=== PATIENT | male | born 1950 | race African-American/Black ===

== ENCOUNTER 2020-04-15 12:01 | Inpatient (IN) | payer BC ==
[~2020-04-15] VITALS: Ht 182.9 cm; Wt 111.7 kg
[2020-04-15] VITALS (29 sets, daily range): BP systolic 112–199; BP diastolic 71–127
--- NOTE | ~2020-04-15 | HC ---
[facility] [address] [place] [address] CONSULTATION Name: AQUILES COBB Room #: 247-P [facility] IN M.R.#: [id number] Admission: 04/15/20 Attend Phys: Sonia Buchanan Discharge: Date of : 50 Report #: [id number] THIS REPORT FOR: cc: Billy Garcia MD [facility] - Family physician unknown Brian Dwyer MD ~ DATE OF SERVICE: 04/15/2020 HISTORY OF PRESENT ILLNESS: This is a 69-year-old male patient who was evaluated by me in the Emergency Room and I had numerous conversations with multiple health administrator health care facility including Emergency Room doctor, sustainability coordinator, radiologist, MRI personnel, patient's and family. The patient is difficult to evaluate because the patient is intubated and is on propofol. tells me that the patient is hypertensive for a long time. She does not know for sure whether he takes his medication on a regular basis. She says that he does not discuss things with her. She did not know the name of the family doctor. The patient is right handed. Around 11-11:30 or somewhere in between that time, the patient became restless. He started pacing, he tried to drive, but came back within 5 minutes and he became unresponsive. Talking to Emergency Room physician, it would appear the patient had a grand mal seizure after that and he was noticed to be weak on the left side. Emergency Room physician had sent the patient for CT and CT angiogram. I went and reviewed it and reviewed it with radiologist. His CT scan looks okay. CT angiogram unfortunately is suboptimal because the patient's injection is subcutaneous and there is very little dye in the patient's vessels. I could not examine the patient. Emergency Room physician told me that he was weak on the left side and he had gaze preference towards the left, it does not make any anatomical sense. My opinion was that although in the original study, seizure at the onset was a contraindication, but now the feeling is if the physician's subjective feeling is that this patient's seizure did not explain the patient's deficit, we should proceed with TPA. This was a very difficult case to decide, but my feeling was that we should proceed with TPA and after talking to the and after getting her consent, we started the TPA. Then his lab came back. His PT, PTT was okay and his potassium was 7.2 and they said the specimen was not hemolyzed. That was a very high potassium. That made it even more difficult to determine whether his deficit is because of stroke or whether it can be because of other things going on with him. I tried to inquire what his blood sugar was when these symptoms started. It looks like when ambulance people came, it was 179. So, it does look like he was hypoglycemic. His magnesium was not done and I asked them to get it done. He already received the bolus for TPA, but my feeling was, now since his potassium is also so high, his magnesium is not available, his CT angio and perfusion is suboptimal and we still have time left because it started between 11 to 11:30, we should go ahead [facility] [address] [place] [address] CONSULTATION Name: JORDYNAQUILES Rajeev Room #: 247-P ADM IN M.R.#: [id number] Admission: 04/15/20 Attend Phys: Sonia Buchanan Discharge: Date of : 50 Report #: [id number] and get an MRI before we finish the TPA. Unfortunately, the MRI got delayed. MRI got delayed because he had a chest x-ray which was significantly abnormal and they do not know whether it is COVID or just a pulmonary infiltrate. MRI also told me that they need to get approval from senior vice president and chief information officer before an MRI is done. They also have to take care of his high potassium before they feel comfortable sending him down for MRI because it was a very high potassium. Ultimately, all of it was achieved and the patient was sent to MRI and that is where he is. I had numerous discussions with the since then. I have discussed all the options with her. My plan is that if the MRI demonstrate any embolus, then we need to transfer this patient to some other facility. If MRI is normal, then I think we should just watch him conservatively. I have overridden the contraindication of seizure in this patient, but feel uncomfortable overriding other contraindications including very high potassium of 7.2 and if the MRI does not show any abnormality and MRA does not show any abnormality, then it becomes difficult to make a strong case for TPA, although this can still very well be a stroke. If stroke occurred, it will be unusual that the patient started pacing and then suddenly passed out. That is not a typical history. Focal deficit can occur after strokes in the presence of metabolic disturbances, but I will discuss all the options with the family. My plan was to finish the TPA if we can justify stroke on MRI and not give any further TPA if we do not. If we do not give him TPA, we have to give him fluid boluses to get his blood pressure up to some extent. An addendum will be dictated to this patient after I look at the MRI and talk to the again. By: 1456 44 Brian Dwyer MD /nt
[~2020-04-15 12:01] MED LIST: CIPROFLOXACIN500 M1 PO; CLONIDINE HCL0.2 M2 GT; FLOMAX PO; IBUPROFEN 800800 MG PO; JANUVIA50 MG; LANTUS100 UNIT/M SUBQ; LISINOPRIL5 MG PO
--- NOTE | 2020-04-15 12:50 | NUR ---
INTUBATED AT THIS TIME BY ERP 20MG ETOMIDATE 200MG SUCC.
[2020-04-15 12:52] LABS: ABSOLUTE NEUTROPHILS 6.4 thou/uL (1.4-8.2); BASOPHILS 1.2 % (0.0-2.0); EOSINOPHILS 1.8 % (0.0-3.0); HEMATOCRIT 49.5 % (42.0-52.0); HEMOGLOBIN 15.8 gm/dL (14.0-18.0); LYMPHOCYTES 23.4 % (24.0-44.0); MCHC 31.9 g/dL (28.0-37.0); MCV 84.9 fL (80.0-100.0); MONOCYTES 9.8 % (1.0-8.0); PLATELET COUNT 351 thou/uL (150-400); POLYS 63.8 % (36.0-66.0); RBC 5.83 mil/uL (4.50-6.00)
[2020-04-15 13:09] LABS: APTT 25.3 Seconds (24.5-32.8); PROTIME 10.2 Seconds (9.3-11.4)
[2020-04-15 13:16] LABS: ALBUMIN 3.5 g/dL (3.4-5.0); ANION GAP 8 mmol/L (7-16); BUN 14 mg/dL (7-18); CALCIUM 8.8 mg/dL (8.5-10.1); CHLORIDE 106 mmol/L (98-107); CO2 23 mmol/L (21-32); CREATININE 1.9 mg/dL (0.7-1.3); GLUCOSE 257 mg/dL (74-106); SGOT 17 U/L (15-37); SGPT 15 U/L (16-63); SODIUM 137 mmol/L (136-145); TOTAL BILIRUBIN 0.9 mg/dL (0.2-1.0); TOTAL PROTEIN 8.5 g/dL (6.4-8.2); TROPONIN-I <0.06 ng/mL (<0.06)
[2020-04-15 13:21] LABS: POTASSIUM 7.2 mmol/L (3.5-5.1)
--- NOTE | 2020-04-15 13:26 | EKG ---
[address] [address] [place] [address] ELECTROCARDIOGRAM REPORT Name: AQUILES COBB Room #: REG RADHA Steven#: [id number] Admission: 04/15/20 Attend Phys: Discharge: Date of : 50 Report #: [id number] [facility] ED Test Date: 2020-04-15 Test Time: 12:33:40 Pat Name: AQUILES COBB Department: Room: Gender: M Personal Vehicle Advisor: : 1950 Requested By: Jose Barber Order Number: [id number] MD: Joseph Aguero Measurements Intervals Moran Rate: 149 P: 0 IA: 60 QRS: -52 QRSD: 136 T: 99 QT: 329 QTc: 518 Interpretive Statements Wide-QRS tachycardia, suspect Atrial Flutter with 2:1 block Ventricular premature complex Nonspecific IVCD with LAD No previous ECG available for comparison Electronically Signed On 04-15-2020 13:25:54 LEAD MILITARY ANALYST by Joseph Aguero [email or web address] <ELECTRONICALLY SIGNED> By: Joseph Aguero MD, [facility] 04/15/20 1325 1233 1233 Joseph Aguero MD, FACC /EPI
[2020-04-15 16:38] LABS: BE(vivo) -6.2 mmol/L (-2 to +3); HCO3 19.5 mmol/L (22.0-26.0); PCO2 39.5 mmHg (35.0-45.0); sO2 95.8 % (92.0-98.0)
[2020-04-15 16:39] LABS: pH 7.311 (7.360-7.450)
[2020-04-15 17:23] LABS: CREATININE 1.8 mg/dL (0.7-1.3)
[2020-04-15 17:26] LABS: POTASSIUM 5.2 mmol/L (3.5-5.1)
--- NOTE | 2020-04-15 18:56 | NUR ---
FAMILY UPDATED AT THIS TIME ON POC AND TRANSFER TO ICU
--- NOTE | 2020-04-15 19:57 | NUR ---
Pt transported from ED to ICU room 247 on [place] intubated with propofol/NS running. Pt BP in the 140s Sys with Cardene no longer running. Pt is PUI and is isolated. ALL staff doning appropriate PPE for admission of pt. Pt's possession in two bags and a hat in room. Continue with plan of care.
[2020-04-16] VITALS (42 sets, daily range): BP systolic 112–177; BP diastolic 73–111
[2020-04-16 04:59] LABS: PROT/CREAT RATIO 4.8; URINE CREATININE-RANDOM* 67.6 mg/dL; URINE PROTEIN-RANDOM* 325.3 mg/dL (<11.9)
[2020-04-16 09:26] LABS: BE(vivo) -3.8 mmol/L (-2 to +3); PCO2 42.6 mmHg (35.0-45.0); PO2 92.2 mmHg (80.0-100.0); pH 7.331 (7.360-7.450); sO2 96.6 % (92.0-98.0)
--- NOTE | 2020-04-16 12:13 | NUR ---
ASSUMED CARE AT 0700. PATIENT TAKEN OFF SEDATION AROUND 1000. PATIENT WAS ON CPAP TRIAL FROM [id number]. PATIENT EXTUBATED BY RT AT [address] CELAYA. PATIENT NOW ON NC @ 5L AND TOLERATING IT WELL. RESTRATINTS WERE TAKEN OFF AFTER EXTUBATION AT 1150.
== END 2020-04-16 14:40 | disposition left against medical advice (07) | DRG 100 ==
LOC: ER 12:01 → EROBS 16:40 → ICU 16:40
PROVIDERS: Emergency Medicine; Internal Medicine Nephrology; ADMIT Hospitalist; ATTEND Hospitalist
PROC: 0BH17EZ Insertion of Endotracheal Airway into Trachea, Via Natural or Artificial Opening (ICD-10-PCS; principal; 2020-04-15)
PROC: 5A1935Z Respiratory Ventilation, Less than 24 Consecutive Hours (ICD-10-PCS; principal; 2020-04-15)
DX: G40.909 Epilepsy, unspecified, not intractable, without status epilepticus (principal); J96.00 Acute respiratory failure, unspecified whether with hypoxia or hypercapnia; I16.1 Hypertensive emergency; N17.9 Acute kidney failure, unspecified; E87.2 Acidosis; E87.5 Hyperkalemia; R91.8 Other nonspecific abnormal finding of lung field; E11.22 Type 2 diabetes mellitus with diabetic chronic kidney disease; I12.9 Hypertensive chronic kidney disease with stage 1 through stage 4 chronic kidney disease, or unspecified chronic kidney disease; R80.9 Proteinuria, unspecified; Z53.29 Procedure and treatment not carried out because of patient's decision for other reasons; Z86.73 Personal history of transient ischemic attack (TIA), and cerebral infarction without residual deficits; Z20.828 Contact with and (suspected) exposure to other viral communicable diseases
CPT/HCPCS: 10078

== ENCOUNTER 2020-04-16 20:12 | Inpatient (IN) | payer BC, OTHER ==
[~2020-04-16] VITALS: Ht 182.9 cm; Wt 120.3 kg
[2020-04-16 20:13] VITALS: BP 179/104
[2020-04-16 21:45] LABS: ABSOLUTE NEUTROPHILS 10.8 thou/uL (1.4-8.2); BASOPHILS 0.7 % (0.0-2.0); EOSINOPHILS 0.4 % (0.0-3.0); HEMATOCRIT 44.9 % (42.0-52.0); HEMOGLOBIN 14.2 gm/dL (14.0-18.0); LYMPHOCYTES 8.7 % (24.0-44.0); MCH 26.8 pg (26.0-34.0); MCHC 31.7 g/dL (28.0-37.0); MCV 84.5 fL (80.0-100.0); MONOCYTES 8.3 % (1.0-8.0); POLYS 81.9 % (36.0-66.0); RBC 5.31 mil/uL (4.50-6.00); RDW 14.6 % (10.5-14.5); WBC 13.2 thou/uL (4.0-11.0)
[2020-04-16 21:49] LABS: PLATELET COUNT 249 thou/uL (150-400)
[2020-04-16 21:53] LABS: CALCIUM 8.7 mg/dL (8.5-10.1); POTASSIUM 3.8 mmol/L (3.5-5.1)
[2020-04-16 21:59] LABS: ALBUMIN 3.2 g/dL (3.4-5.0); TOTAL BILIRUBIN 0.9 mg/dL (0.2-1.0)
[2020-04-16 23:10] VITALS: BP 179/104
[2020-04-16 23:24] VITALS: BP 162/105
[2020-04-17] VITALS (32 sets, daily range): BP systolic 92–221; BP diastolic 43–136
--- NOTE | 2020-04-17 02:44 | NUR ---
PT ADMITTED FOR MONITORING AFTER LEAVING THE HOSPITAL 04/16/2020 AMA .PT IS A/O X3 AND ALSO CONFUSE AND FORGETFUL.PT IS UP WITH X1 ASSIST TO RESTROOM.PT USES URINAL.PT IS ACCUCHECK ACHS .PT IS ON 2L OF O2 .PT AND HIGH BLOOD PRESSURE AND WAS ADMINISTERED HYDRALAZINE PRN .PT HAD A TEMPERATURE OF 100.OF AND WAS GIVEN TYLENOL.PT REMAINED IN BED TILL THIS POINT.WILL CONTINUE TO MONITOR
--- NOTE | 2020-04-17 08:15 | NUR ---
cm completed the initial assessment to discuss bio-pyschosocial hx and d/c planning on 04/16/20. cm spk w/pt's , alia, as pt was in ICU and confused. pt was "not acting right" yeterday moring, as evidenced by, "pacing the floor...not speaking...left the garage door open...not answering his phone." when the pt finally answered his phone, pt told alia he was in the driveway. after pt sat in the car for sometime, she went outside. alia stated she could "tell by his eyes something wasnt right." pt is usu A&O, active and independent w/cares. pt is employed and has 0 DMES and denies hx w/SNF or HH. According to RN notes, pt left hospital AMA on 04/15/20. Pt was brought back to [facility] accompanined by his dtr last night. cm to cont to follow.
--- NOTE | 2020-04-17 12:05 | NUR ---
PT ADMITTED YESTEDAY RELATED TO ASPIRATION PNA, KARL. CHART AND SPOUSE INDICATED THAT PT HAD LEFT AMA FROM [facility] [place] YESTERDAY AFTER HE WAS EXTUBATED. PT'S SPOUSE INDICATED THAT THEY HAD ALL ENGOURAGED HIM TO COME BACK BUT HE HAD REFUSED UNTIL HIS DTR CAME OVER YESTERDAY EVENING. CM CALLED AND SPOKE WITH PT OVER THE PHONE THIS DAY. HE INDICATED HE RESIDES IN A HOUSE WITH HIS . NO STEPS TO ENTER 10 STEPS HE USES INSIDE. 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 NO DME, HH HX , OR SNF. CM CALLED AND SPOKE WITH PT'S WELL. SHE CONFIRMED THE ABOVE. PHYSICIAN INDICATED THAT REPEAT COVID TEST IS PENDING AND THAT NEUROLOGY HAS BEEN CONSULTED AND PT HAD SEIZURE. SPOUSE INDICATED THAT THEY ANTICPATE PT RETURNING HOME ONCE MEDICALLY STABLE. CM TO FOLLOW INDICATED WITH DC PLANNING.
--- NOTE | 2020-04-17 14:54 | NUR ---
CM NOTIFIED THAT CARE TEAM IS WANTING PT TRANSFERED TO CCU RELATED TO BP ISSUES. PT IS TO TRANSFER TO [facility] 206 FOR CLOSER MEDICAL MONITORING. CM NOTIFIED PT'S SPOUSE. CM TO FOLLOW INDICATED WITH DC PLANNING.
--- NOTE | 2020-04-17 15:00 | NUR ---
PT A&OX2-3, FORGETFUL, DENIES PAIN. HYDRALAZINE GIVEN FOR HYPERTENSION. PATIENT RESTED MOSTLY TODAY IN BED. PATIENT HAD NO APPETITE, DID DRINK WATER. PATIENT STEADY ON FEET AND WORKED WITH PHYSICAL THERAPY. PATIENT TRANSFERED TO CCU, REPORT GIVEN TO HARINDER.
--- NOTE | 2020-04-17 16:05 | NUR ---
PT ARRIVED ON UNIT AROUND 1520, PT AOX3 WITH SOME CONFUSION/FORGETFULNESS. PT IS HYPERTENSIVE, REPORT RECEIVED FROM NURSE MONTEJO ON 4W REPOR[address] DR[address] CHAWLA WAS INFORMED ABOUT ELEVATED B/P AND PT WAS TRANSFERRED TO THIS UNIT WITH HYDRALAZINE IV PRN, IT WAS ADMINISTERED. PT IS ASKING FOR HIS PIMENTEL CATHETER. PT DID NOT HAVE A PIMENTEL. HE WAS USING THE URINAL ON . DAUGHTER IN ROOM WITH PT FOR SAFETY. NURSE ENCOURAGED PT TO STAY LAYING DOWN AND RELAX. IV PATENT FLUSHING WELL. PT WAS TRYING TO GET UP AND WALK AROUND IN HIS ROOM. PT NEEDS STANDBY ASSIST FOR SAFETY. NURSE EDUCATED ABOUT USING CALL LIGHT. WILL CONTINUE TO MONITOR.
[2020-04-18] VITALS (51 sets, daily range): BP systolic 114–172; BP diastolic 66–101
--- NOTE | 2020-04-18 06:28 | NUR ---
BLOOD PRESSURE STABILIZED ON CARDENE GTT; DC'D CARDENE AT 0530. BLOOD PRESSURE 130/88. ST/SR ON MONITOR. HR 90s to 100s. 950 CC OUT IN PIMENTEL. BLOOD TINGED URINE DUE TO CLOT; IRRIGATED PIMENTEL CATHETER. AFEBRILE. PT PROGRESSING TOWARDS GOALS IN PLAN OF CARE.
--- NOTE | 2020-04-18 07:18 | EKG ---
[address] [address] [facility] [place] [address] ELECTROCARDIOGRAM REPORT Name: AQUILES COBB Room #: 250-P ADM IN M.R.#: [id number] Admission: 04/16/20 Attend Phys: Joey Garcia MD Discharge: Date of : 50 Report #: [id number] [facility] ED Test Date: 2020-04-16 Test Time: 22:46:24 Pat Name: AQUILES COBB Department: Room: 250 Gender: M Regulatory Affairs Manager: : 1950 Requested By: Ambrose Schwartz Order Number: [id number] MD: Joseph Aguero Measurements Intervals Emerson Rate: 101 P: 64 IN: 182 QRS: -43 QRSD: 126 T: 113 QT: 369 QTc: 479 Interpretive Statements Sinus tachycardia Ventricular premature complex Nonspecific IVCD with LAD LVH with secondary repolarization abnormality Inferior infarct, old Compared to ECG 04/15/2020 12:33:40 Left ventricular hypertrophy now present Early repolarization now present Atrial flutter no longer present 2:1 AV block no longer present Electronically Signed On 04-18-2020 7:17:53 GUEST RELATIONS REPRESENTATIVE by Joseph Aguero [email or web address] <ELECTRONICALLY SIGNED> By: Joseph Aguero MD, FACC 04/18/20 0717 2246 Joseph Aguero MD, [facility] /EPI
--- NOTE | 2020-04-18 07:20 | EKG ---
[address] [place] [address] ELECTROCARDIOGRAM REPORT Name: AQUILES COBB Room #: 250-P ADM IN M.R.#: [id number] Admission: 04/16/20 Attend Phys: Joey Garcia MD Discharge: Date of : 50 Report #: [id number] [facility] Test Date: 2020-04-17 Test Time: 18:26:37 Pat Name: AQUILES COBB Department: Room: 250 P Gender: M Plasma Table Operator: Alma MARAVILLA : 1950 Requested By: Joey Garcia Order Number: [id number] MD: Joseph Aguero Measurements Intervals [place] Rate: 121 P: 19 DC: 149 QRS: -50 QRSD: 128 T: 101 QT: 354 QTc: 503 Interpretive Statements Sinus tachycardia Left bundle branch block Compared to ECG 04/15/2020 12:33:40 Left bundle-branch block now present Ventricular premature complex(es) no longer present Intraventricular conduction delay no longer present Electronically Signed On 04-18-2020 7:20:31 FITTINGS FINISHER by Joseph Aguero [email or web address] <ELECTRONICALLY SIGNED> By: Joseph Aguero MD, FACC 04/18/20 0720 25 25 Joseph Aguero MD, FAC /EPI
--- NOTE | 2020-04-18 07:20 | NUR ---
ASSUMMED CARE FROM THE NIGHT NURSE, ANNABELLE NORWOOD. VSS WITH BP IN THE 140'S TO 150'S OVER 70'S TO 80'S WITH CARDENE OFF.
[2020-04-18 08:46] LABS: ALBUMIN 2.9 g/dL (3.4-5.0); CALCIUM 8.7 mg/dL (8.5-10.1); CREATININE 1.8 mg/dL (0.7-1.3); PHOSPHORUS 3.8 mg/dL (2.6-4.7); POTASSIUM 3.5 mmol/L (3.5-5.1)
--- NOTE | 2020-04-18 09:26 | 2DMMODE ---
[facility] [place] [place] [address] 2 D/M-MODE ECHOCARDIOGRAM Name: AQUILES COBB Room #: 250-P ADM IN M.R.#: [id number] Admission: 04/16/20 Attend Phys: Joey Garcia MD Discharge: Date of : 50 Report #: [id number] THIS REPORT FOR: cc: Billy Garcia MD, Amit MD Lundgren, Craig H. MD [facility] ~ APPROVED REPORT Study performed: 04/18/2020 08:39:44 EXAM: Comprehensive 2D, Doppler, and color-flow Echocardiogram Patient Location: ICU Room #: 250 Status: routine BSA: 2.30 HR: 92 bpm BP: 146/77 mmHg Rhythm: Sinus arrhythmia Other Information Study Quality: Good Indications HTN emergency, short of breath. Hx: HTN, HLP, CVA. 2D Dimensions RVDd: 42.47 mm IVSd: 11.48 (7-11mm) LVOT Diam: 21.69 (18-24mm) LVDd: 55.07 mm PWd: 10.40 (7-11mm) LVDs: 48.94 (25-40mm) Aortic Root: 35.88 mm Volumes Left Atrial Volume (Systole) Single Plane 4CH: 97.36 mL Single Plane 2CH: 145.21 mL LA ESV Index: 57.00 mL/m2 Aortic Valve AoV Peak Te.: 1.61 m/s AO Peak Gr.: 10.39 mmHg LVOT Max P.20 mmHg LVOT Max V: 0.89 m/s CHELLY Vmax: 2.05 cm2 [facility] [address] [place] [place] [address] 2 D/M-MODE ECHOCARDIOGRAM Name: AQUILES COBB Room #: 250-P [facility]#: [id number] Admission: 04/16/20 Attend Phys: Joey Garcia, Discharge: Date of : 50 Report #: [id number] Mitral Valve E/A Ratio: 1.8 MV Decel. Time: 141.39 ms MV E Max Te.: 0.96 m/s MV A Te.: 0.54 m/s MV PHT: 41.00 ms IVRT: 76.12 ms Pulmonary Valve PV Peak Te.: 0.96 m/s PV Peak Gr.: 3.66 mmHg Tricuspid Valve RAP Estimate: 5.00 mmHg Left Ventricle The left ventricle is normal size. There is global hypokinesis of the left ventricle. Borderline concentric left ventricular hypertrophy. Left ventricular systolic function is moderately decreased. LVEF is 35-40%. Moderate diastolic dysfunction is present. Right Ventricle Right ventricle is at the upper limits of normal. The right ventricular systolic function is normal. Atria Left atrium is moderately dilated. Right atrium is at the upper limits of normal. Aortic Valve The aortic valve is mildly calcified, trileaflet Mild aortic regurgitation. There is no aortic valvular stenosis. Mitral Valve The mitral valve is normal in structure. Trace mitral regurgitation. No evidence of mitral valve stenosis. Tricuspid Valve The tricuspid valve is normal in structure. There is no tricuspid valve regurgitation noted. Unable to assess PA pressure. Pulmonic Valve The pulmonary valve is normal in structure. There is no pulmonic valvular regurgitation. Great Vessels [facility] [address] [place] [address] 2 D/M-MODE ECHOCARDIOGRAM Name: AQUILES COBB Room #: 250-P [facility] IN .R.#: [id number] Admission: 04/16/20 Attend Phys: Joey Garcia, Discharge: Date of : 50 Report #: [id number] The aortic root is normal in size. IVC is normal in size and collapses >50% with inspiration. Pericardium There is no pericardial effusion. <Conclusion> Left ventricular systolic function is moderately decreased. There is global hypokinesis of the left ventricle. LVEF is 35-40%. Moderate diastolic dysfunction The aortic valve is mildly calcified, trileaflet. Mild aortic regurgitation, no stenosis. The mitral valve is normal in structure. Trace mitral regurgitation. Unable to assess pulmonary artery pressure. There is no pericardial effusion. <ELECTRONICALLY SIGNED> By: Sony Comer MD, [facility] 04/18/20924 4 4 Sony Comer MD, FACC /INF
--- NOTE | 2020-04-18 12:00 | NUR ---
Bedside cardiac echo completed at 0900 today. EF of 35 to 40% reported to Dr Garcia when he rounded. Cardiology consulted and here to examine patient and speak to the patient's who remains at the bedside. Bedside renal ultrasound completed.
[2020-04-18 12:40] LABS: CHOLESTEROL 217 mg/dL (<200); HDL CHOLESTEROL 37 mg/dL (>40); LDL CHOLESTEROL 154 mg/dL (<100); TC:HDL 5.9 Ratio (Not establshd); TRIGLYCERIDE 131 mg/dL (<150); VLDL 26 mg/dL (<40)
[2020-04-18 13:51] LABS: PROT/CREAT RATIO 2.9; URINE CREATININE-RANDOM* 157.7 mg/dL; URINE PROTEIN-RANDOM* 462.9 mg/dL (<11.9)
--- NOTE | 2020-04-18 16:19 | NUR ---
Bedside EEG done at 1400
--- NOTE | 2020-04-18 16:25 | NUR ---
Patient progressing towards outcome goals as SBP is less than 160 mmgh. Noted to have poor short term memory, reorientated and focused. remains at bedside.
[2020-04-19] VITALS (20 sets, daily range): BP systolic 127–159; BP diastolic 76–104
--- NOTE | 2020-04-19 | NUR ---
PT IS ALERT AND ORIENTED. ASKED ME WHEN WE WERE GOING TO CUT THE CORD. I EXPLAINED THERE WAS NO CORD TO CUT THAT HE WAS ON NO OXYGEN AND JUST A SALINE LOCK. HE STATES I KNOW I AM GOING TO OR I AM ALREADY . I ASSURED HIM HE WAS ALIVE. PT ASKED TO USE MY STETHOSCOPE TO HEAR HIS HEART BEAT. HE HEARD IT BUT NOT BELIEVE IT. WILL CONT TO MONITOR.
[2020-04-19 04:59] LABS: ALBUMIN 2.6 g/dL (3.4-5.0); CALCIUM 8.1 mg/dL (8.5-10.1); CREATININE 1.6 mg/dL (0.7-1.3); PHOSPHORUS 2.8 mg/dL (2.5-4.9); POTASSIUM 3.4 mmol/L (3.5-5.1)
--- NOTE | 2020-04-19 06:00 | NUR ---
PT IS WORRIED WHEN HIS COMES IN AT 0900 THAT SHE WILL BE REALLY UPSET THat he is . i assured him that will not happed because he is ALIVE 1000 CC UO THIS SHIFT. SBP 140/80 SINUS RHYTHM. WILL CONT TO SANTIAGO
[2020-04-19 10:14] LABS: HEMATOCRIT 43.8 % (42.0-52.0); HEMOGLOBIN 13.9 gm/dL (14.0-18.0); MCH 26.8 pg (26.0-34.0); MCHC 31.7 g/dL (28.0-37.0); MCV 84.5 fL (80.0-100.0); RBC 5.18 mil/uL (4.50-6.00); RDW 14.1 % (10.5-14.5); WBC 11.5 thou/uL (4.0-11.0)
[2020-04-19 10:51] LABS: FOLIC ACID 7.1 ng/mL (8.6-58.9)
--- NOTE | 2020-04-19 13:47 | HC ---
[facility] [place] [address] CONSULTATION Name: JORDYNAQUILES Room #: 250-P [facility] IN .R.#: [id number] Admission: 04/16/20 Attend Phys: Joey Garcia MD Discharge: Date of : 50 Report #: [id number] THIS REPORT FOR: cc: Billy Garcia MD, Amit MD Khosla,Brian Gonsalves MD ~ DATE OF SERVICE: 04/17/2020 HISTORY OF PRESENT ILLNESS: This is a 69-year-old male patient who was seen by me in the Emergency Room when he was admitted. Yesterday, he left against medical advice. He said he came back because of his family insisted. He said he is doing better. His left sided weakness has resolved. REVIEW OF SYSTEMS: Positive for uncontrolled hypertension, for which he was admitted. His potassium was high. He had seizures. He had no reoccurrence of seizure. Reviewing the record, it would appear that the patient's carotid Dopplers and echocardiogram was canceled because the patient left against medical advice. Review of systems also positive for diabetes, hypertension, CVA, seizures. The patient gives the history, but he also gives the impression that he is here reluctantly. That was his relevant 14-point review of system. PAST MEDICAL HISTORY: Negative for any TIA or stroke. SOCIAL HISTORY: The patient has a supportive family and I talked to the extensively. FAMILY HISTORY: Positive for myocardial infarction. PHYSICAL EXAMINATION: Indicates he is alert and he is a very well-built individual. His hearing and vision look adequate. He is alert, oriented. His speech looks intact. His cranial nerve examination sometime showed a question of weakness on the left face, but it is subtle finding at best. No hemianopsia. He moves both sides reasonably well. He said his sensation is intact. There is no meningeal sign. There is no carotid bruit. There is no cerebellar ataxia. Cardiac examinations appear unremarkable. Blood pressure is 186/124, respirations 18, pulse is 93, temperature is 98.5. LABORATORY DATA: His white count for some reason is 13.2 and he had slight fever. He has no edema, cyanosis or jaundice. IMPRESSION: This patient has shown no evidence of stroke. I suspect he has hypertensive encephalopathy and metabolic encephalopathy secondary to multiple labs, which were abnormal, but has come back to normal now. I will suggest [facility] [address] [place] [address] CONSULTATION Name: AQUILES COBB Room #: 250-P [facility] IN .R.#: [id number] Admission: 04/16/20 Attend Phys: Joey Garcia MD Discharge: Date of : 50 Report #: [id number] checking a TSH, vitamin B12 and I will suggest checking a carotid Doppler, echocardiogram and EEG, which was not done last time. The patient did have seizures and he cannot drive for 6 months and should take seizure precaution. Rest of the management is going to be mainly the management of his systemic problems including his renal problems. I will defer that to hospitalist. I will check that workup and leave an addendum to this if anything else needs to be done, but from neurological perspective, but mainly I will suggest checking that workup from neurological perspective and working him up for other etiologies including a creatinine and is still uncontrolled hypertension. Thank you very much for this referral and if you have any question, please feel free to contact me. I will follow him up as necessary. <ELECTRONICALLY SIGNED> By: Brian Dwyer MD 04/19/20 1347 1447 16 Brian Dwyer MD /nt
--- NOTE | 2020-04-19 13:49 | EEG ---
[facility] [place] [address] ELECTROENCEPHALOGRAM Name: AQUILES COBB Rajeev Room #: 250-P [facility] IN M.R.#: [id number] Admission: 04/16/20 Attend Phys: Joey Garcia MD Discharge: Date of : 50 Report #: [id number] THIS REPORT FOR: //name// DATE OF SERVICE: 04/18/2020 This patient is being evaluated for seizure. EEG was done by placing the electrode by standard 10-20 system of electrode placement. Both referential and sequential montages were used for recording. Background activity in this patient's EEG is about 8-9 Hz and 20 microvolt. This patient became drowsy and that is associated with bilateral slowing and vertex sharp waves. Photic stimulation is unremarkable. Throughout the record, no active epileptiform activity was noticed. IMPRESSION: This patient's EEG is intermixed with theta range slowing on both sides. That is a nonspecific abnormality, which can occur with drowsiness, effect of psychotropic medication, dementia, encephalopathy, etc. Clinical correlation is recommended. <ELECTRONICALLY SIGNED> By: Brian Dwyer MD 04/19/20 2869 [id number] Brian Dwyer MD /nt
--- NOTE | 2020-04-19 17:44 | NUR ---
ASSUMED PATIENT CARE AT 0700. ALERT, CONFUSED AND ANXIOUS. VSS. NO DISDRESS NOTED. FAMILY UPDATED. POOR APPETITE. SLOWLY TOWARDS POC GOALS.
--- NOTE | 2020-04-19 17:46 | NUR ---
ASSUMED PATIENT CARE AT 0700. ALERT. TOLERATED ON CPAP. FREQUENTLY SUCTION AND TRACH CARE. VSS. NO ANY OUTPUT FROM RIGHT CHEST TUBE. TOLERATED TUBE FEEDING. PROGRESSING TOWARDS POC GOALS.
[2020-04-20] VITALS (7 sets, daily range): BP systolic 117–131; BP diastolic 68–92
[2020-04-20 02:44] LABS: ALBUMIN 2.6 g/dL (3.4-5.0); CALCIUM 8.4 mg/dL (8.5-10.1); CREATININE 1.8 mg/dL (0.7-1.3); PHOSPHORUS 3.4 mg/dL (2.6-4.7); POTASSIUM 3.8 mmol/L (3.5-5.1)
--- NOTE | 2020-04-20 06:00 | NUR ---
PT HAS REMAINED AWAKE ALL NIGHT AND TALKING ON PHONE WATCHING TV. A VERY PLEASANT GENTLEMAN. DENIES PAIN NOR DISCOMFORT. LUNGS CLEAR 1300 CC UO THIS SHIFT. SBP 128/83 PROGRESSING TOWARD GOALS. NO SEIZURE ACTIVITY NOTED. POSSIBLE TX TO MED SURG TELE TODAY. NO BEDS AVAILABLE HAD A LARGE SOFT BROWN STOOL EARLIER. WILL CONT TO MONITOR
--- NOTE | 2020-04-20 10:51 | NUR ---
0800- IN.--VW 0900- AT BEDSIDE,BROUGHT BREAKFAST & LUNCH PT REFUSING HOSPITAL FOOD.--VW 1030- IN.--VW
[2020-04-21 04:26] LABS: ALBUMIN 2.4 g/dL (3.4-5.0); CALCIUM 8.2 mg/dL (8.5-10.1); CREATININE 1.8 mg/dL (0.7-1.3); POTASSIUM 3.6 mmol/L (3.5-5.1)
[2020-04-21 04:45] VITALS: BP 109/74
--- NOTE | 2020-04-21 05:14 | NUR ---
ASSESSMENTS CHARTED, MEDS GIVEN CHARTED. HAD BED SPEECH LANGUAGE PATHOLOGY ASSISTANT PLACED ON BED. PATIENT HAS PIMENTEL WITH SM BLOOD CLOTS. ACHS ACCU CHECKS WITH FAST AND LONG ACTING INSULIN. PATIENT WALKED 1/2 WAY AROUND UNIT THEN BACK AGAIN WITH THE AID OF A WALKER. NO SKIN ISSUES. PATIENT HAD ONE RUN OF VTACH, 9 BEATS. STRESS TEST IS SCHEDULED FOR WEDNESDAY. FALL PRECAUTIONS IN PLACE DURING SHIFT.
[2020-04-21 09:36] VITALS: BP 118/76
[2020-04-21 12:32] VITALS: BP 112/75
[2020-04-21 14:07] VITALS: BP 89/62
[2020-04-21 17:48] VITALS: BP 117/82
--- NOTE | 2020-04-21 18:30 | NUR ---
ASSUMMED PT CARE AT APPROXIMATELY 0700. PT A&O X4. ASSESSMENT CHARTED. FALL PRECAUTIONS IN PLACE. PT DENIES HAVING CHEST PAIN. PT DENIES HAVING SOB. PT DENIES HAVING ACUTE PAIN. VITAL SIGNS STABLE. BLOOD SUGARS STABLE. EDUCATED PT AND PT'S FAMILY ABOUT POC. PT AND FAMILY MEMEBER STATED UNDERSTANDING AND DENIED HAVING FURTHER QUESTIONS. PT COMFORTABLE. PT DENIES HAVING FURTHER CONCERNS.
[2020-04-21 20:22] VITALS: BP 124/84
[2020-04-22 03:56] LABS: ALBUMIN 2.7 g/dL (3.4-5.0); CALCIUM 8.6 mg/dL (8.5-10.1); CREATININE 1.8 mg/dL (0.7-1.3); PHOSPHORUS 3.8 mg/dL (2.5-4.9); POTASSIUM 3.6 mmol/L (3.5-5.1)
[2020-04-22 04:03] VITALS: BP 101/81
[2020-04-22 07:26] VITALS: BP 126/81
--- NOTE | 2020-04-22 07:54 | NUR ---
SLEPT MOST OF SHIFT. UP TO IN CHAKRABORTY WITH GAIT BELT, WALKER AND STANDBY ASSIST. WALKED 2 LAPS WITH PARTS MANAGER AT SIDE AND TOLERATED WELL. WORKING ON GOALS AND PLAN OF CARE FOR NOC. NPO FOR AM STRESS TEST. PROGRESSING SLOWLY TOWARDS DISCHARGE GOALS. CONTINUE TO ASSES CLOSELY.
[2020-04-22] MEDS ORDERED: ELIQUIS2.5 MG PO (15:21)
[2020-04-22] MEDS ORDERED: LIPITOR40 MG PO (15:21)
[2020-04-22] MEDS ORDERED: CARVEDILOL3.125 MG PO (15:22)
[2020-04-22] MEDS ORDERED: NORVASC10 MG PO (15:22)
[2020-04-22] MEDS ORDERED: LISINOPRIL20 MG PO (15:23)
[2020-04-22] MEDS ORDERED: ADULT LOW DOSE81 MG PO (15:24)
[2020-04-22] MEDS ORDERED: B-12500 MCG PO (15:25)
[2020-04-22] MEDS ORDERED: FOLIC ACID1 MG PO (15:26)
[2020-04-22] MEDS ORDERED: MULTIVITAMINS PO (15:26)
[2020-04-22 15:46] VITALS: BP 126/81
[2020-04-22] MEDS ORDERED: FLOMAX0.4 MG PO (17:07)
[2020-04-22 17:18] VITALS: BP 126/81
--- NOTE | 2020-04-22 17:25 | NUR ---
ASSUMED CARE AT SHIFT CHANGE, MEDICATION AND DISCHARGE INSTRUCTIONS GIVEN TO PATIENT AND SPOUSE. BG 254 PRIOR TO DISCHARGE, PATIENT REFUSED TO EAT DINNER AND REFUSED INSULIN. DISCHARGED HOME.
== END 2020-04-22 17:57 | disposition home or self-care (01) | DRG 177 ==
LOC: ER 20:12 → 4W 22:39 → 2N 22:39 → EROBS 22:39 → 4W 23:31 → 2N 04-17 15:10 → ICU 04-17 17:39 → 2N 04-20 13:34
PROVIDERS: Emergency Medicine; Internal Medicine Nephrology; Psychiatry & Neurology Neuromuscular Medicine; ADMIT Internal Medicine; ATTEND Internal Medicine
DX: J69.0 Pneumonitis due to inhalation of food and vomit (principal); J96.01 Acute respiratory failure with hypoxia; N17.9 Acute kidney failure, unspecified; I16.1 Hypertensive emergency; I42.9 Cardiomyopathy, unspecified; I48.92 Unspecified atrial flutter; I67.4 Hypertensive encephalopathy; E78.5 Hyperlipidemia, unspecified; N18.9 Chronic kidney disease, unspecified; E87.5 Hyperkalemia; I12.9 Hypertensive chronic kidney disease with stage 1 through stage 4 chronic kidney disease, or unspecified chronic kidney disease; R80.9 Proteinuria, unspecified; I16.0 Hypertensive urgency; E11.22 Type 2 diabetes mellitus with diabetic chronic kidney disease; N40.0 Benign prostatic hyperplasia without lower urinary tract symptoms; I25.10 Atherosclerotic heart disease of native coronary artery without angina pectoris; Z20.828 Contact with and (suspected) exposure to other viral communicable diseases; Z79.4 Long term (current) use of insulin; Z79.899 Other long term (current) drug therapy; Z86.73 Personal history of transient ischemic attack (TIA), and cerebral infarction without residual deficits; Z91.19 Patient's noncompliance with other medical treatment and regimen
CPT/HCPCS: 10047; 10078; 10081

== ENCOUNTER → 2020-06-17 | Outpatient (CLI) | payer BC, OTHER ==
[~2020-06-17] MED LIST changes: +ADULT LOW DOSE81 MG PO; +B-12500 MCG PO; +CARVEDILOL3.125 MG PO; +ELIQUIS2.5 MG PO; +FLOMAX0.4 MG PO; +FOLIC ACID1 MG PO; +LIPITOR40 MG PO; +LISINOPRIL20 MG PO; +MULTIVITAMINS PO; +NORVASC10 MG PO
== END ==
LOC: SJCVCIMAG 08:49
PROVIDERS: ATTEND Internal Medicine
DX: I35.8 Other nonrheumatic aortic valve disorders (principal); I49.8 Other specified cardiac arrhythmias; I10 Essential (primary) hypertension; I25.5 Ischemic cardiomyopathy

== ENCOUNTER → 2020-10-14 | Outpatient (CLI) | payer BC, OTHER | LOC: SJCVCIMAG 07:32 | PROVIDERS: ATTEND Internal Medicine | DX: I11.9 Hypertensive heart disease without heart failure (principal); I42.9 Cardiomyopathy, unspecified; Z79.899 Other long term (current) drug therapy ==

== ENCOUNTER 2021-03-12 08:30 | Inpatient (IN) | payer BC, OTHER ==
[~2021-03-12] VITALS: Ht 193 cm; Wt 113.4 kg
[2021-03-12 08:38] VITALS: BP 112/65
[2021-03-12 09:23] LABS: HEMATOCRIT 30.4 % (42.0-52.0); HEMOGLOBIN 9.3 gm/dL (14.0-18.0); MCH 26.1 pg (26.0-34.0); MCHC 30.7 g/dL (28.0-37.0); MCV 84.9 fL (80.0-100.0); PLATELET COUNT 301 thou/uL (150-400); RBC 3.57 mil/uL (4.50-6.00); RDW 14.4 % (10.5-14.5); WBC 24.8 thou/uL (4.0-11.0)
[2021-03-12 09:57] LABS: CALCIUM 8.4 mg/dL (8.5-10.1); CREATININE 3.1 mg/dL (0.7-1.3); TOTAL BILIRUBIN 0.5 mg/dL (0.2-1.0); TOTAL PROTEIN 7.2 g/dL (6.4-8.2)
[2021-03-12 09:59] LABS: POTASSIUM 7.9 mmol/L (3.5-5.1)
[2021-03-12 10:54] LABS: ABSOLUTE NEUTROPHILS 18.4 thou/uL (1.4-8.2); METAMYELOCYTES 2 %
[2021-03-12 10:56] LABS: ANISOCYTOSIS SLIGHT
[2021-03-12] MEDS ORDERED: CARVEDILOL12.5 MG PO (12:11)
[2021-03-12 12:12] VITALS: BP 128/71
[2021-03-12] MEDS ORDERED: FARXIGA5 MG PO (12:13)
[2021-03-12 12:34] VITALS: BP 113/63
[2021-03-12 14:13] LABS: CALCIUM 8.3 mg/dL (8.5-10.1)
[2021-03-12 14:17] LABS: POTASSIUM 5.6 mmol/L (3.5-5.1)
[2021-03-12] MEDS ORDERED: HUMALOG100 UNIT/1 SUBQ (14:28)
[2021-03-12 14:42] LABS: URINE BILIRUBIN NEGATIVE (Negative); URINE BLOOD TRACE (Negative); URINE CLARITY CLEAR; URINE COLOR YELLOW; URINE GLUCOSE-RANDOM* 2+ (Negative); URINE KETONES NEGATIVE (Negative); URINE LEUKOCYTES-REFLEX NEGATIVE (Negative); URINE NITRITE-REFLEX NEGATIVE (Negative); URINE PROTEIN (DIPSTICK) NEGATIVE (Negative); URINE SPECIFIC GRAVITY 1.015 (1.005-1.035); URINE UROBILINOGEN 0.2 E.U./dl (0.2-1.0)
[2021-03-12 15:14] VITALS: BP 116/71
--- NOTE | 2021-03-12 15:44 | EKG ---
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: : [id number] Requested By: Oscar Landis Order Number: [id number] MD: Joseph Aguero Measurements Intervals [place] Rate: 82 P: 63 TX: 170 QRS: -41 QRSD: 122 T: 95 QT: 384 QTc: 449 Interpretive Statements Sinus rhythm Left bundle branch block Compared to ECG 04/17/2020 18:26:37 Sinus tachycardia no longer present Electronically Signed On 03-12-2021 15:44:26 2ND GRADE TEACHER by Joseph Aguero [email or web address] <ELECTRONICALLY SIGNED> By: Joseph Aguero MD, [facility] 03/12/21 1544 [id number] Joseph Aguero MD, FACC /EPI
--- NOTE | 2021-03-12 16:26 | NUR ---
PATIENT IS ADMITTED TO THE FLOOR AT APPROIXMATELY 12:40. PATIENT IS ALERT AND ORIENTED X4. PATIENT IS ON FALL PRECAUTIONS AND HAS ON YELLOW SOCKS AND WRIST BAND ACCORDING TO POLICY. PATIENT HAS A CATHETER IN PLACE AND IT IS PATENT. MINDYTNET HAS AN IV IN HIS RIGHT AND IT IS PATIENT. PATIENT CURRENTLY HAS NORMAL SALINE RUNNING THRU HIS IV IN HIS RIGHT HAND. URINE SPECIMEN OBTAINED AND SENT TO LABS. WAITING FOR PATIENT TO PASS STOOL TO COLLECT A BM SPECIMEN DUE TO LOOSE STOOLS OCCURING AT HOME. PATIENT WILL CONTINUE TO BE MONITORED.
[2021-03-12 18:59] VITALS: BP 118/63
[2021-03-13] VITALS (11 sets, daily range): BP systolic 88–142; BP diastolic 53–66
--- NOTE | 2021-03-13 06:03 | NUR ---
PT IS A&OX4 AND ABLE TO COMMUNICATE WANTS AND NEEDS TO STAFF. PT HAS BEEN CONCERNED ABOUT HIS POTASSIUM LEVELS THROUGHOUT THE NIGHT, FREQUENTLY ASKING STAFF MEMBERS ABOUT SUCH. THIS RN REMINDED PT THAT HIS POTASSIUM CAME DOWN SIGNIFICANTLY SINCE ADMISSION FROM 7.9 TO 5.6, AND THAT LEVELS WOULD BE CHECKED AGAIN IN THE MORNING. LAB HERE AT THIS TIME TO REDRAW, AND WILL COMMUNICATE RESULTS TO PT WHEN AVAILABLE. PT HAS BEEN SR/BBB/PAC'S ON THE MONITOR. PT HAS BEEN HAVING FREQUENT LIQUID STOOLS. STOOL SAMPLE COLLECTED AND SENT TO LAB TO R/O CDIFF AND OCCULT BLOOD. PT SELF-CATH'S AT HOME, PIMENTEL IN PLACE AT THIS TIME WITH ADEQUATE CLEAR YELLOW URINARY OUTPUT. WILL CONTINUE TO OBSERVE FOR CHANGES AND WILL UPDATE PT ABLE.
[2021-03-13 06:40] LABS: MCH 27.2 pg (26.0-34.0); MCHC 30.9 g/dL (28.0-37.0); RBC 2.06 mil/uL (4.50-6.00); RDW 14.4 % (10.5-14.5); WBC 29.3 thou/uL (4.0-11.0)
[2021-03-13 06:42] LABS: PLATELET COUNT 140 thou/uL (150-400)
[2021-03-13 06:43] LABS: HEMOGLOBIN 5.6 gm/dL (14.0-18.0)
[2021-03-13 06:44] LABS: CALCIUM 8.1 mg/dL (8.5-10.1); CREATININE 3.4 mg/dL (0.7-1.3); HEMATOCRIT 18.1 % (42.0-52.0); MAGNESIUM 1.9 mg/dL (1.8-2.4); POTASSIUM 5.4 mmol/L (3.5-5.1)
--- NOTE | 2021-03-13 07:01 | NUR ---
CRITICAL LAB FOR HgB 5.6, HcT 18.1, AND CO2 18.1. CALLED PROVIDER, ORDERS RECEIVED. GAVE INFORMATION TO PT NURSE.
[2021-03-13 08:57] LABS: % SATURATION 63 % (20-39); IRON 130 ug/dL (65-175); TIBC 205 ug/dL (250-450)
[2021-03-13 10:45] LABS: ABSOLUTE NEUTROPHILS 22.3 thou/uL (1.4-8.2); METAMYELOCYTES 2 %
[2021-03-13 10:58] LABS: FOLIC ACID 31.2 ng/mL (8.6-58.9)
--- NOTE | 2021-03-13 14:08 | NUR ---
INITIAL ASSESSMENT: Received consult. EFREN reviewed chart and spoke with nursing and attending physician. Pt was admitted from home due to renal failure. Pt had blood transfusion earlier today. Hgb 5.6. Pt to have an EGD today. Pt with hx DM/HTN/CVA. Pt is alert/orientated x 4. Pt lives at home with his . Therapy evals have been ordered and are pending. Pt's PCP is Dr. Salbador Kiser. EFREN is following to assist as needed with discharge planning.
[2021-03-13 17:17] LABS: HEMOGLOBIN 5.8 gm/dL (14.0-18.0)
[2021-03-13 17:18] LABS: HEMATOCRIT 18.3 % (42.0-52.0)
--- NOTE | 2021-03-13 18:43 | NUR ---
PT ALERT AND ORIENTED X 4. PT VERY DROWSY THROUGHOUT SHIFT. PT HAD DARK TARRY STOOL AT BEGINNING OF SHIFT, AND GI BLEED SUSPECTED. PT HAD CRITICAL HGB 5.6. PT HAD 2 UNITS BLOOD TRANSFUSION. PT HGB 5.8 AFTER 2 UNITS. PT HAD EGD, 1 L BLOOD SUCTIONED FROM STOMACH. ULCER FOUND IN BOTTOM OF STOMACH. NPO FOR REST OF NIGHT. PT ON 3L NC FROM RA AFTER COMPLAINTS OF SOA. CONTINUING TO MONITOR CLOSELY. 2 MORE UNITS BLOOD TO BE GIVEN THIS PM.
[2021-03-14 04:51] VITALS: BP 120/60
--- NOTE | 2021-03-14 06:37 | NUR ---
ASSUMED CARE OF PT AT 1900. PT ASSESSED TO BE AOX4 70M PT WITH RENAL FAILURE, GASTRIC ULCER WITH BLEEDING, AND HYPERGLYCEMIA. PT RESTED IN ROOM THROUGHOUT THE NIGHT, VITALS BECAME BETTER MEDS AND BLOOD WAS ADMINISTERED. AT BEGINNING OF SHIFT FINISHED ADMINISTRATION OF 3RD UNIT OF BLOOD. AFTERWARDS, BEGAN LAST (4TH) UNIT OF BLOOD WITH FLUIDS AND ANTIBIOTICS. INSULIN HIGH SCALE GIVEN PRIOR TO BEDTIME WITH ORALS, TOLERATED WELL. PT R FOREARM IV INFILTRATED DURING BLOOD ADMINISTRATION--MOLD CAR PUSHER AND HAND COREMAKER RACHEL INSERTED L SINGLE IJ AND PULLED UPDATED HGB WHICH WAS 7.1 AFTER 3.5 UNITS. OXYGEN STABLE 90+ THROUGHOUT THE NIGHT ON 3L. BP INCREASED TO NORMAL 120S SYSTOLIC FLUIDS ADMINISTERED. FENTANYL ONBOARD NOW D/T PAIN IN R FOREARM FROM PRESSURE. NO NEW COMPLAINTS AT THIS TIME, PT RESTING IN BED PIMENTEL PATENT.
[2021-03-14 07:13] LABS: ALBUMIN 1.9 g/dL (3.4-5.0); CALCIUM 8.1 mg/dL (8.5-10.1); CREATININE 3.5 mg/dL (0.7-1.3); PHOSPHORUS 5.1 mg/dL (2.5-4.9); POTASSIUM 4.9 mmol/L (3.5-5.1)
[2021-03-14 07:39] LABS: HEMATOCRIT 22.5 % (42.0-52.0); HEMOGLOBIN 7.1 gm/dL (14.0-18.0)
[2021-03-14 08:03] VITALS: BP 113/54
[2021-03-14 11:30] VITALS: BP 113/54
[2021-03-14 11:35] VITALS: BP 110/58
--- NOTE | 2021-03-14 14:19 | NUR ---
EFREN reviewed chart and spoke with nursing and attending physician. Pt had EGD yesterday. Hgb being monitored. Pt is on 3L of O2. Therapy evals are all on hold. No weekend discharge planned. Pt remains NPO. Will need insurance authorization for post-acute placement. EFREN is following to assist as needed with discharge planning.
[2021-03-14 15:34] VITALS: BP 105/59
[2021-03-14 16:23] LABS: HEMATOCRIT 23.9 % (42.0-52.0); HEMOGLOBIN 7.4 gm/dL (14.0-18.0)
[2021-03-14 19:24] VITALS: BP 133/96
--- NOTE | 2021-03-14 22:26 | NUR ---
ASSESSMENT COMPLETED. PT IS SLEEPING BUT WOKE UP AND ANSWERED MY QUESTIONS. ASKED FOR SOME FRESH WATER WITH ICE. DENIES PAIN. HE WAS ABLE TO REPOSITION SELF IN BED. NO BM. PIMENTEL TO D/D.BOWEL SOUNDS PRESENT. HE IS ON /NC FOR COMFORT. BP STBLE. NO SIGNS OF BLEEDING. R HAND IS STILL VERY SWOLLEN, THEREFORE REMAINS ELEVATED ON PILLOW.HE IS NOW WATCHING TV. NO FURTHER CONCERNS.
[2021-03-15 02:07] LABS: COMPLEMENT-C3 111 mg/dL (82-167); COMPLEMENT-C4 20 mg/dL (12-38)
[2021-03-15 02:07] LABS: IgA 282 mg/dL (61-437); IgG 1000 mg/dL (603-1613); IgM 68 mg/dL (20-172)
[2021-03-15 04:18] VITALS: BP 105/49
[2021-03-15 05:59] LABS: MCV 86.3 fL (80.0-100.0)
[2021-03-15 06:04] LABS: HEMOGLOBIN 6.5 gm/dL (14.0-18.0); MCH 28.9 pg (26.0-34.0); MCHC 33.5 g/dL (28.0-37.0); RBC 2.27 mil/uL (4.50-6.00); RDW 15.2 % (10.5-14.5); WBC 31.7 thou/uL (4.0-11.0)
[2021-03-15 06:09] LABS: HEMATOCRIT 19.6 % (42.0-52.0)
[2021-03-15 06:16] LABS: ALBUMIN 1.8 g/dL (3.4-5.0); CALCIUM 7.8 mg/dL (8.5-10.1); POTASSIUM 4.1 mmol/L (3.5-5.1)
[2021-03-15 07:11] VITALS: BP 110/61
[2021-03-15 10:15] VITALS: BP 126/56; BP 130/68
[2021-03-15 11:15] VITALS: BP 213/68
[2021-03-15 13:07] LABS: KAPPA FREE LIGHT CHAINS 181.9 mg/L (3.3-19.4); KAPPA/LAMBDA RATIO 1.63 (0.26-1.65); LAMBDA FREE LIGHT CHAINS 111.5 mg/L (5.7-26.3)
--- NOTE | 2021-03-15 15:05 | NUR ---
REFER TO OT VARIANCE ON OT EVAL STATUS
[2021-03-15 15:06] VITALS: BP 120/71
[2021-03-15 16:06] LABS: ANA INTERPRETATION Negative (Negative)
--- NOTE | 2021-03-15 18:46 | NUR ---
ASSUMED PATIENT CARE AT 0700 . A/O X4. RECEIVED ONE UNIT RBC NO REACTION NOTED. TOLERATED ON FULL LIQUID DIET. SOLWLY TOWARDS POC GOALS.
[2021-03-15 20:02] VITALS: BP 115/61
[2021-03-16 00:25] VITALS: BP 127/56
[2021-03-16 03:57] VITALS: BP 106/48
--- NOTE | 2021-03-16 06:01 | NUR ---
PROGRESS PT A/O X4. NOT OOB THIS SHIFT BUT UP WITH ASSISTANCE AND GB. VSS, ACCUCHECKS CONTINUE STILL HAS POOR DIETARY INTAKE. BICARB IVF'S INFUSING AT 50CC/HR, PROTONIX GTT INFUSING AT 8 MG/HR. NO STOOLS LAST NIGHT URINE CLEAR DARK YELLOW. HGB 6.5 LAB DRAWN AWAITING TODAYS RESULTS. PT VOICED CONCERN OVER LOW HGB LEVELS. DENIES PAIN OR NEED FOR PAIN MEDICATION. ASSISTED TO REPOSITION THROUGHOUT NIGHT DRANK 2 JUICES AND SOME WATER. PIMENTEL CATHETER IN PLACE DRAINING ADEQUATE AMOUNTS OF URINE. CONTINUE TO MONITOR LAB RESULTS, MONITOR ACTIVITY FOR SAFETY.
[2021-03-16 06:07] LABS: HEMATOCRIT 22.6 % (42.0-52.0); HEMOGLOBIN 7.4 gm/dL (14.0-18.0); MCH 28.5 pg (26.0-34.0); MCHC 32.6 g/dL (28.0-37.0); MCV 87.2 fL (80.0-100.0); RBC 2.6 mil/uL (4.50-6.00); RDW 14.8 % (10.5-14.5); WBC 35.1 thou/uL (4.0-11.0)
[2021-03-16 06:37] LABS: CALCIUM 7.7 mg/dL (8.5-10.1); CREATININE 2.4 mg/dL (0.7-1.3); PHOSPHORUS 3.6 mg/dL (2.5-4.9); POTASSIUM 3.6 mmol/L (3.5-5.1)
[2021-03-16 07:06] VITALS: BP 129/65
--- NOTE | 2021-03-16 08:57 | NUR ---
VERBAL REPORT RECIVED FROM OUTOING RN,. PT FOUND AOX3, WAMT TO SPEAK TO MD ABOUT PROCEDURE AND DISCHARGE, DENIES PAIN, WITH MARGARITOPT ON ROOM AIR BREATHING REGULARLY. RIGHT HAND NOTED W/ SWELLING. DOUND INSUSIN NA BICARB IN R. IJ AND RT. WRIST.
[2021-03-16 11:05] VITALS: BP 116/60
[2021-03-16 15:10] VITALS: BP 135/79
--- NOTE | 2021-03-16 16:25 | NUR ---
VAT CONSULTED FOR PICC LINE. DISCUSSED BENEFITS AND RISK WITH PT. HE REFUSED TO SIGN CONSENT UNTIL HE SPEAKS WITH . STATED MAYBE LATER TODAY. RN NOTIFIED
[2021-03-16 19:00] VITALS: BP 146/82
[2021-03-16 21:05] LABS: URINE BILIRUBIN NEGATIVE (Negative); URINE BLOOD 3+ (Negative); URINE CLARITY SL CLOUDY; URINE COLOR YELLOW; URINE GLUCOSE-RANDOM* NEGATIVE (Negative); URINE KETONES NEGATIVE (Negative); URINE LEUKOCYTES 1+ (Negative); URINE NITRITE NEGATIVE (Negative); URINE PROTEIN (DIPSTICK) 1+ (Negative); URINE SPECIFIC GRAVITY 1.015 (1.005-1.035); URINE UROBILINOGEN 0.2 E.U./dl (0.2-1.0)
[2021-03-16 21:14] LABS: CASTS None Seen /LPF (None Seen); RENAL EPITHELIAL CELLS 0-3 Few /LPF (None Seen); SQUAMOUS None Seen /LPF (0-3); URINE RBC >20 Many /HPF (NONE SEEN); URINE WBC 6-15 Few /HPF (NONE SEEN)
[2021-03-16 21:16] LABS: BACTERIA 1-9 Few /HPF (None Seen); CRYSTALS None Seen /LPF (None Seen)
[2021-03-17] VITALS (7 sets, daily range): BP systolic 124–157; BP diastolic 51–74
--- NOTE | 2021-03-17 03:13 | NUR ---
PROGRESS PT A/O X4. WBC COUNT UP TO 35.1, SLIGHT TEMP OF 99.9. UROLOGY IN TO SEE PT ORDERED CIPRO IV, ADVISED TO ELEVATE LEFT TESTICLE WITH TOWEL TO HELP DECREASE EDEMA. PIMENTEL CATH IN PLACE, URINE SPECIMEN OBTAINED AND SENT TO LAB ORDERED. RIGHT HAND STILL EDEMATOUS AND SORE FROM IV INFILTRATION, WARM PACK APPLIED WITH SOME RELIEF. SODIUM BICARB INFUSING IN LEJ AT 50CC/HR. ZOSYN INFUSED ORDERED. REQUESTED PAIN MEDICATION FOR RIGHT HAND PAIN AND, LEFT TESTICLE PAIN 25 MCG FENTANYL GIVEN X 1, PT SLEPT AFTER. PIMENTEL CATHETER IN PLACE DRAINING CLEAR DARK YELLOW URINE. BM DURING THE DAY. ACCUCHECKS SSI CONTINUE, LANTUS AT HS. CONTINUE POC. FOR AWHILE AFTER.
[2021-03-17 03:35] LABS: HEMOGLOBIN 6.5 gm/dL (14.0-18.0)
[2021-03-17 03:37] LABS: MCH 28.9 pg (26.0-34.0); MCHC 33.1 g/dL (28.0-37.0); MCV 87.1 fL (80.0-100.0); PLATELET COUNT 318 thou/uL (150-400); RBC 2.26 mil/uL (4.50-6.00); RDW 14.9 % (10.5-14.5)
[2021-03-17 03:47] LABS: ALBUMIN 1.7 g/dL (3.4-5.0); CALCIUM 7.3 mg/dL (8.5-10.1); CREATININE 2.1 mg/dL (0.7-1.3); MAGNESIUM 1.6 mg/dL (1.8-2.4); PHOSPHORUS 3.1 mg/dL (2.5-4.9); POTASSIUM 3.4 mmol/L (3.5-5.1); TOTAL BILIRUBIN 0.4 mg/dL (0.2-1.0); TOTAL PROTEIN 6.2 g/dL (6.4-8.2)
[2021-03-17 04:42] LABS: HEMATOCRIT 19.7 % (42.0-52.0)
[2021-03-17 11:26] LABS: ABSOLUTE NEUTROPHILS 28.7 thou/uL (1.4-8.2); ANISOCYTOSIS 1+; POLYCHROMASIA OCCASIONAL
[2021-03-17 13:00] LABS: HEMATOCRIT 24.8 % (42.0-52.0); HEMOGLOBIN 8.1 gm/dL (14.0-18.0)
--- NOTE | 2021-03-17 15:38 | NUR ---
SW reviewed chart and spoke with nursing and attending physician. Pt febrile and hemoglobin dropped. Pt had blood transfusion earlier today. PT/OT to work with pt. SW asked 5N rehab to follow to see if pt would be a good rehab candidate. EFREN is following to assist as needed with discharge planning.
[2021-03-17 16:06] LABS: M-SPIKE Not Observed g/dL (Not Observed)
--- NOTE | 2021-03-17 18:00 | NUR ---
PT HAD A BLOOD TRANSUFAION THIS AM, NO REACTION NOTED. PT HEMOGLOBIN IS 8.1 NOW. ALERT AND ORIENTED X4, DENIES ANY PAIN, NUMBNESS NOR TINGLING. ON ROOM AIR, NO SIGNS OF DISTRESS. WORKED WITH PT/OT. SCROTUM ELEVATED PER UROLOGIST ORDER TO HELP WITH SWELLING. PT WILL BE HAVING EGD TOMORROW. NOP AFTER MIDNIGHT. FALL PRECAUTIONS IN PLACE. WILL CONTINUE TO MONITOR
[2021-03-18 04:00] VITALS: BP 136/70
--- NOTE | 2021-03-18 04:52 | NUR ---
PROGRESS PT A/O X4. NOT OOB THIS SHIFT, ABLE TO PULL HIMSELF UP IN BED AND REPOSITIONS SELF. SKIN C/D/I. SCROTUM MORE EDEMATOUS TODAY THAN YESTERDAY ELEVATED ON TOWEL MOST OF SHIFT. ONE DOSE OF FENTANY GIVEN FOR SCROTAL AND ABDOMINAL PAIN WITH EFFECT PT SLEPT AFTER. SODIUM BICARB INFUSING ORDERED AT 50CC/HR. ZOSYN GIVEN Q8HRS IVPB ORDERED. NPO AT MIDNIGHT FOR EGD IN AM. CONSENT SIGNED AND PLACED ON CHART. PIMENTEL CATHETER IN PLACE DRAINING CLEAR YELLOW URINE. LEFT EJ INTACT FLUSHES WITHOUT DIFFICULTY, DEVONTE PIV IN PLACE WITH BICARB INFUSING. NO STOOLS THIS SHIFT. RUNNING A LOW GRADE TEMP 100.5, REMAINING VS WNL. TELEMETRY INTACT READING SR WITH RATES IN THE 70'S. LABS REMAIN ABNORMAL BUT SHOWING SLOW IMPROVEMENT. CONTINUE TO MONITOR.
[2021-03-18 05:37] LABS: HEMATOCRIT 22.8 % (42.0-52.0); HEMOGLOBIN 7.7 gm/dL (14.0-18.0); MCHC 33.6 g/dL (28.0-37.0); MCV 86.3 fL (80.0-100.0); RBC 2.64 mil/uL (4.50-6.00); RDW 15.1 % (10.5-14.5); WBC 29.8 thou/uL (4.0-11.0)
[2021-03-18 05:45] LABS: ALBUMIN 1.7 g/dL (3.4-5.0); CALCIUM 7.5 mg/dL (8.5-10.1); CREATININE 1.9 mg/dL (0.7-1.3); PHOSPHORUS 3.1 mg/dL (2.5-4.9); POTASSIUM 3.5 mmol/L (3.5-5.1); TOTAL BILIRUBIN 0.5 mg/dL (0.2-1.0); TOTAL PROTEIN 6.4 g/dL (6.4-8.2)
[2021-03-18 07:00] VITALS: BP 133/74
--- NOTE | 2021-03-18 10:53 | NUR ---
SW reviewed chart and spoke with nursing and attending physician. Pt febrile and had drop in hemoglobin. Pt to have an EGD today. SW met with pt and at bedside. Introduced role of SW. Pt is alert/orientated x 4. Pt and live at home. Prior to admission, pt was independent with ADLs. Pt's PCP is Dr. Salbador Kiser. No hx of services or post-acute placement. PT/OT ordered. 5N consult ordered. SW is following to assist as needed with discharge planning.
[2021-03-18 11:11] VITALS: BP 145/78
[2021-03-18 16:16] VITALS: BP 148/78
--- NOTE | 2021-03-18 18:08 | NUR ---
1640 PT BACK FROM EGD, VITAL SIGNS STABLE. ASSESSMENT COMPLETED. MEDICATIONS GIVEN. PT DENIES ANY PAIN. STATED HE WANTS TO REST. AT BEDSIDE. CONTINUE TO BE ROOM AIR. DENIES NEEDS LUISA
[2021-03-18 18:47] VITALS: BP 133/76
--- NOTE | 2021-03-18 22:13 | NUR ---
PT RESTING IN BED, WATCHING TV. REQUESTED PRN FOR SLEEP WHEN AIDE WAS ASSISTING PT. LUNGS DIMINISHED IN BASES. SCROTUM EDEMA REMAINS AND ELEVATED ON TOWEL. PIMENTEL TO DD. PT DECLINED HS SNACK. NO STOOLS. PT ASKING QUESTIONS RE EGD RESULTS AND HGB LEVEL. PT CALLS FOR ASSISTANCE.
[2021-03-19 03:53] VITALS: BP 130/80
[2021-03-19 05:56] LABS: HEMATOCRIT 21.9 % (42.0-52.0); HEMOGLOBIN 7.4 gm/dL (14.0-18.0); MCH 29.3 pg (26.0-34.0); MCHC 33.8 g/dL (28.0-37.0); MCV 86.6 fL (80.0-100.0); RBC 2.53 mil/uL (4.50-6.00); RDW 14.6 % (10.5-14.5); WBC 19.7 thou/uL (4.0-11.0)
[2021-03-19 06:13] LABS: ALBUMIN 1.7 g/dL (3.4-5.0); CALCIUM 7.4 mg/dL (8.5-10.1); POTASSIUM 3.6 mmol/L (3.5-5.1)
[2021-03-19 07:00] VITALS: BP 124/78
--- NOTE | 2021-03-19 10:29 | NUR ---
Assess for length of stay. S/P recent EGD with clipping due to gastric ulcers. Hx CVA, DM. Visit with pt this am, resting with eyes closed and did not answer many questions. Did state, usually eats fine, hasn't liked meals served past several days. Daughter at bedside, explained alternative menu selections and obtained pts lunch order today. No significant wt loss from pts reported usual wt of 250 lb. Provider has indicated protein calorie malnutrition; RD defer. Presents low nutrition risk
[2021-03-19 11:41] VITALS: BP 122/20
--- NOTE | 2021-03-19 14:52 | P ---
[facility] [place] [address] PROCEDURE REPORT Name: JORDYNAQUILES Rajeev Room #: 357-P [facility] IN M.R.#: [id number] Admission: 03/12/21 Attend Phys: Bruce Lopez MD Discharge: Date of : 50 Report #: [id number] THIS REPORT FOR: cc: Salbador Kiser MD, Thomas P. MD McElhinney, Christian C. MD ~ cc: Alberto Hadley MD, Leandro Collier MD, Tran Sousa MD, DATE OF SERVICE: 03/18/2021 PROCEDURE PERFORMED: Upper endoscopy with biopsies. HISTORY OF PRESENT ILLNESS: The patient is a 70-year-old male with a history of upper GI bleed and anemia, who underwent upper endoscopy by my partner, Dr. Smith on 03/13/2021. Esophagus was normal. At that time, large amount of bloody fluid was noted in the stomach, a gastric ulcer with an adherent clot and active oozing was seen in the antral region. This was injected with epinephrine and a single endoclip was placed. No further bleeding was noted after the procedure. The patient has been doing well with some mild abdominal pain, but has a continued drop in hemoglobin and has required several blood transfusions, total of 6 altogether throughout his hospital stay. His hemoglobin dropped yesterday to 6.5. Plan was to do an upper endoscopy yesterday; however, the patient ate breakfast. He was given blood, hemoglobin is 8.1 after that. His hemoglobin today is 7.7. Plan is for upper endoscopy. DESCRIPTION OF PROCEDURE: The risks and benefits of the procedure were explained to the patient. Those risks including but not limited to bleeding, perforation and the risk of sedation. He understood these risks and gave informed consent. Sedation was given using propofol per anesthesia. Next, using a standard Olympus upper endoscope, the scope was placed in the patient's mouth and advanced under direct vision through the esophagus, stomach and into the second portion of the duodenum. Esophagus was normal throughout. The GE junction was normal. In the stomach, there was a mild diffuse gastritis noted in the fundus and upper body. No evidence of bleeding. There were several ulcerations noted, the largest in the mid body was approximately 2 cm, clean white base. No evidence of bleeding or visible vessel. Another smaller clean white-based ulcer was noted with the single endoclip in place. These were both near the angularis. In the antrum near the pylorus, several clean white-based ulcers were also noted, no evidence of bleeding. In fact, there was no evidence of blood throughout the exam today. Gastric biopsies were obtained today to rule out the possibility of H. pylori. The pylorus was normal and patent. The duodenal bulb, first and second portion were all normal. The scope was then withdrawn and the procedure terminated. The patient tolerated the procedure well. [address] [address] PROCEDURE REPORT Name: AQUILES COBB Room #: 357-P [facility] IN .R.#: [id number] Admission: 03/12/21 Attend Phys: Bruce Lopez MD Discharge: Date of : 50 Report #: [id number] IMPRESSION: 1. Several gastric ulcers as described above one including with recent endoclip still in place. No evidence of bleeding. 2. Gastritis, biopsies obtained. 3. Otherwise normal upper endoscopy. RECOMMENDATIONS: 1. Continue PPI therapy and Carafate. 2. Await biopsy results. 3. If hemoglobin continues to drop, may need to consider colonoscopy in the near future. Thank you for allowing me to participate in his care. <ELECTRONICALLY SIGNED> By: Yong Mendoza MD 03/19/21 1452 [id number] Yong Mendoza MD /nt
--- NOTE | 2021-03-19 15:21 | NUR ---
EFREN reviewed chart and spoke with nursing and attending physician. Pt had EGD yesterday. Pt febrile and is on IV abx. Pt may be ready to discharge home in 1-2 days. Recommendation made for pt to have services. EFREN met with pt and at bedside to discuss discharge plan. HH list provided. No preference voiced of HH agency. Pt and are aware of discharge soon. EFREN faxed HH referral to [facility]. Spoke with Fanny in intake to notify of new referral. Pt's insurance to be verified. Discharge ppwk will need to be faxed to when available. Awaiting input from [facility] at this time to confirm they are able to accept pt on service. EFREN is following to assist as needed with discharge planning.
[2021-03-19 16:00] VITALS: BP 138/79
[2021-03-19 16:38] VITALS: BP 124/78
--- NOTE | 2021-03-19 19:36 | NUR ---
PT IS PROGRESSING TOWARDS DISCHARGE. EXTREMELY LARGE BOWEL MOVEMENT IN THE MRONING, DARK BROWN LOOSE IN TEXTURE. PT CLEANED UP STATES FEELING MUCH BETTER. NO OBVIOUS SIGNS OF BLEEDING. HEMOGLOBIN CONTINUING TO DROP FROM YESTERDAY'S, MD GORE AND GI TEAM MADE KNOWN BY RN. PER GI PT IS SCHEDULED TO RECEIVE COLONOSCOPY AN OUTPATIENT. PT DID HAVE SPIKE IN FEVER IN THE MORNING, MD GORE MADE KNOWN, PER MD TO FOLLOW AND IF ANOTHER SPIKE THEN RETRIEVE BLOOD CULTURE, PTS TEMPERATURE ELEVATED TO 99.4 IN THE EVENING, MD GORE NOTIFIED, ORDERS FOR BLOOD CULTURE RECEIVED. RN SIGNING OFF. PTS /DAUGHTER/AND FIRST COUSIN PRESENT IN ROOM TODAY. TO THE DAUGHTER/ RN EXPLAINED PLAN OF CARE AND TREATMENT, WHICH BOTH VERBALIZED UNDERSTANDING AND GRATITUDE.
[2021-03-19 20:17] VITALS: BP 127/64
--- NOTE | 2021-03-19 22:32 | NUR ---
PT RESTING IN BED, COVERS OVER HEAD IN THE DARK. PT EASILY AROUSED FOR ASSESSMENT, PT ASSISTED WITH REPOSITIONING. PIMENTEL TO DD. SCROTUM ELEVATED ON TOWEL. IVF INTACT. TEDS AND SCDS IN PLACE. PT REQUESTED HS SNACK AND PROVIDED. PT DISCUSSED PLAN FOR DC IN AM. BED ALARM ON.
[2021-03-20 04:26] VITALS: BP 121/62
[2021-03-20 05:52] LABS: HEMATOCRIT 21.4 % (42.0-52.0); HEMOGLOBIN 7.1 gm/dL (14.0-18.0); MCH 28.9 pg (26.0-34.0); MCHC 33.3 g/dL (28.0-37.0); MCV 86.8 fL (80.0-100.0); RBC 2.47 mil/uL (4.50-6.00); RDW 14.7 % (10.5-14.5); WBC 14.2 thou/uL (4.0-11.0)
[2021-03-20 06:15] LABS: ALBUMIN 1.7 g/dL (3.4-5.0); CALCIUM 7.6 mg/dL (8.5-10.1); CREATININE 2.1 mg/dL (0.7-1.3); PHOSPHORUS 3.1 mg/dL (2.5-4.9); POTASSIUM 3.8 mmol/L (3.5-5.1)
[2021-03-20 07:47] VITALS: BP 128/64
[2021-03-20 11:28] VITALS: BP 104/59
[2021-03-20 16:24] VITALS: BP 119/78
--- NOTE | 2021-03-20 17:24 | NUR ---
PT IN BED RESTING, A SOMEWHAT FRUSTRATED HE WASNT ABLE TO MAKE IT HOME FOR THANKSGIVING. ALERT AND ORIENTED X4. CONTINUE TO BE ON ROOM AIR, NO SIGNS OF DISTRESS. HAD A LARGE BM, LOOSE, GREENISH DARK COLOR. SCROTUM CONTINUE TO BE ELEVATED. PIMENTEL CONTINUE TO BE IN PLACE. PLAN TO TAKE IT OUT TMR, START TRAIGHT CATH BEFORE D/C SOON. ANTICIPATING FOR D/C SOON, IF HEMOGLOBIN STAYS STABLE.
[2021-03-20 20:30] VITALS: BP 133/78
[2021-03-21 04:23] VITALS: BP 123/68
[2021-03-21 05:55] LABS: HEMATOCRIT 21.5 % (42.0-52.0); HEMOGLOBIN 7.3 gm/dL (14.0-18.0); MCH 29.3 pg (26.0-34.0); MCV 86.2 fL (80.0-100.0); RBC 2.49 mil/uL (4.50-6.00); RDW 14.9 % (10.5-14.5); WBC 12.7 thou/uL (4.0-11.0)
--- NOTE | 2021-03-21 06:25 | NUR ---
PROGRESS PT A/O X4. NO STOOLS THIS SHIFT. NOT OOB THIS SHIFT. DENIES PAIN . PIV IN RAC WITH INTERMITTENT ANTIBIOTICS FLUSHES W/O DIFFICULTY. PIMENTEL INTACT DRAINING ADEQUATE AMOUNTS OF URINE. SCROTUM STILL EDEMATOUS ELEVATED ON TOWEL. ADEQUATE PO FLUID INTAKE. CONTINUE POC.
[2021-03-21 07:01] VITALS: BP 123/75
[2021-03-21] MEDS ORDERED: CIPRO500 M1 PO (08:53)
[2021-03-21] MEDS ORDERED: PROTONIX40 M4 PO (08:53)
[2021-03-21 09:10] VITALS: BP 123/75
--- NOTE | 2021-03-21 12:32 | NUR ---
PT DISCHARGING TODAY TO HOME WITH [facility] FAXED DC ORDERS/SUMMARY RECEIVED CONFIRMATION SPOKE WITH MARAL IN INTAKE THEY WILL CALL PT TO ARRANGE VISITS.
--- NOTE | 2021-03-25 11:07 | PATH ---
[facility] [address] [place] [address] PATHOLOGY RPT PROCEDURE Name: AQUILES COBB Room #: 357-P DIS IN M.R.#: [id number] Admission: 03/12/21 Date of : 50 Discharge: 03/21/21 Report #: [id number] Path Case #: [id number] [facility] Accession Number: [id number] . 01 Material submitted: . gastrointestinal site - GASTRITIS R/O H. PYLORI . 01 Clinical history: . RENAL FAILURE ESOPHAGOGASTRODUODENOSCOPY GASTRITIS . 01 Diagnosis: Gastric biopsy "gastritis": - Mild chronic gastritis arising in the background of chronic reactive gastropathy. - The immunoperoxidase stain for H. pylori is positive. (SHA:michelle; 03/21/2021) MBR 03/21/2021 1126 Local . 01 Electronically signed: . Jose Mayfield MD, Pathologist NPI- [id number] . 01 Gross description: . The specimen is received in formalin, labeled "Jeremy, Aquiles, gastritis", however, the requisition designates the specimen as "gastritis R/O H. pylori" and consists of 3 merchant irregular tissues aggregating 1.0 x 0.4 x 0.2 cm which are filtered and submitted in toto in A1.([place]; 03/19/2021) DKA/DKA 03/21/2021 [facility]5 Local . 01 Pathologist provided ICD-10: K29.50, B96.81 . 01 CPT . 661409, D54228 Specimen Comment: A courtesy copy of this report has been sent to [phone], [phone] Specimen Comment: [id number], Specimen Comment: Report sent to , DR JO / DR SAL Specimen Comment: A duplicate report has been generated due to demographic updates. Performed at: [address] [facility], [place], [place] [id number] MD Jose Mayfield MD Phone: [phone]
== END 2021-03-21 11:36 | disposition home health service (06) | DRG 871 ==
LOC: ER 08:30 → 3W 11:11 → EROBS 11:11 → 3W 12:12
PROVIDERS: Emergency Medicine; Hospitalist; Nurse Practitioner; Nurse Practitioner Family; ADMIT Internal Medicine; ATTEND Internal Medicine
PROC: 0W3P8ZZ Control Bleeding in Gastrointestinal Tract, Via Natural or Artificial Opening Endoscopic (ICD-10-PCS; principal; 2021-03-13)
PROC: 30233N1 Transfusion of Nonautologous Red Blood Cells into Peripheral Vein, Percutaneous Approach (ICD-10-PCS; 2021-03-13)
PROC: 0DB68ZX Excision of Stomach, Via Natural or Artificial Opening Endoscopic, Diagnostic (ICD-10-PCS; 2021-03-17)
DX: A41.9 Sepsis, unspecified organism (principal); E43 Unspecified severe protein-calorie malnutrition; K25.4 Chronic or unspecified gastric ulcer with hemorrhage; I42.9 Cardiomyopathy, unspecified; N17.9 Acute kidney failure, unspecified; E87.1 Hypo-osmolality and hyponatremia; I13.0 Hypertensive heart and chronic kidney disease with heart failure and stage 1 through stage 4 chronic kidney disease, or unspecified chronic kidney disease; I50.32 Chronic diastolic (congestive) heart failure; D62 Acute posthemorrhagic anemia; I48.91 Unspecified atrial fibrillation; E11.22 Type 2 diabetes mellitus with diabetic chronic kidney disease; E86.0 Dehydration; D64.9 Anemia, unspecified; I44.7 Left bundle-branch block, unspecified; E87.5 Hyperkalemia; E55.9 Vitamin D deficiency, unspecified; G40.909 Epilepsy, unspecified, not intractable, without status epilepticus; E78.5 Hyperlipidemia, unspecified; E53.8 Deficiency of other specified B group vitamins; K29.70 Gastritis, unspecified, without bleeding; N40.1 Benign prostatic hyperplasia with lower urinary tract symptoms; R33.8 Other retention of urine; N32.0 Bladder-neck obstruction; N31.9 Neuromuscular dysfunction of bladder, unspecified; N28.1 Cyst of kidney, acquired; R53.81 Other malaise; N45.3 Epididymo-orchitis; Z20.822 Contact with and (suspected) exposure to COVID-19; Z28.21 Immunization not carried out because of patient refusal; Z79.899 Other long term (current) drug therapy; Z82.49 Family history of ischemic heart disease and other diseases of the circulatory system; Z79.01 Long term (current) use of anticoagulants; Z79.4 Long term (current) use of insulin; Z86.73 Personal history of transient ischemic attack (TIA), and cerebral infarction without residual deficits; Z68.30 Body mass index [BMI] 30.0-30.9, adult; Z79.1 Long term (current) use of non-steroidal anti-inflammatories (NSAID)
CPT/HCPCS: 10879; 23012; 62110; 62900; 70005

== ENCOUNTER → 2021-04-10 | Outpatient (CLI) | payer BC, OTHER ==
[~2021-04-10] MED LIST changes: +CARVEDILOL12.5 MG PO; +CIPRO500 M1 PO; +FARXIGA5 MG PO; +HUMALOG100 UNIT/1 SUBQ; +PROTONIX40 M4 PO
== END ==
LOC: SJCVCIMAG 03-10 14:28
PROVIDERS: ATTEND Internal Medicine
DX: I08.3 Combined rheumatic disorders of mitral, aortic and tricuspid valves (principal); I42.9 Cardiomyopathy, unspecified; I11.9 Hypertensive heart disease without heart failure

== ENCOUNTER → 2021-05-22 | Outpatient (CLI) | payer BC, OTHER | LOC: SJCVC 08:56 | PROVIDERS: ATTEND Internal Medicine | DX: I25.5 Ischemic cardiomyopathy (principal); I48.91 Unspecified atrial fibrillation; E11.9 Type 2 diabetes mellitus without complications; E78.5 Hyperlipidemia, unspecified; I10 Essential (primary) hypertension; R56.9 Unspecified convulsions; Z79.82 Long term (current) use of aspirin; Z79.899 Other long term (current) drug therapy; Z82.49 Family history of ischemic heart disease and other diseases of the circulatory system ==

== ENCOUNTER → 2021-06-23 | Outpatient (CLI) | payer BC, OTHER ==
[~2021-06-23] VITALS: Ht 190.5 cm; Wt 108.9 kg
[~2021-06-23] MED LIST changes: +ASA81BEC PO; +B-125000 MC1 SUBLING; +CARVEDILOL25 MG PO; +GALZIN25 MG PO; +PROTONIX40 M2 PO; +SUPER THERAVIT1 EACH PO; +VITAMIN B-12500 MCG PO; +VITAMIN C1000 MG PO; +VITAMIN D350 MCG PO
== END | disposition home or self-care (01) ==
LOC: GI 06:03
PROVIDERS: ATTEND Internal Medicine Gastroenterology
DX: K25.9 Gastric ulcer, unspecified as acute or chronic, without hemorrhage or perforation (principal); T18.2XXA Foreign body in stomach, initial encounter; I10 Essential (primary) hypertension; E11.9 Type 2 diabetes mellitus without complications; E78.5 Hyperlipidemia, unspecified; K21.9 Gastro-esophageal reflux disease without esophagitis; Z98.890 Other specified postprocedural states; Z79.899 Other long term (current) drug therapy; Z79.4 Long term (current) use of insulin; Z86.73 Personal history of transient ischemic attack (TIA), and cerebral infarction without residual deficits; Z20.822 Contact with and (suspected) exposure to COVID-19; X58.XXXA Exposure to other specified factors, initial encounter; Y93.89 Activity, other specified; Y92.89 Other specified places as the place of occurrence of the external cause; Y99.8 Other external cause status
CPT/HCPCS: 62110; 62900